=== PATIENT | female | born 1995 | race Caucasian/White ===

== ENCOUNTER 2021-06-16 14:26 | Outpatient (CLI) ==
[~2021-06-16] VITALS: Ht 162.6 cm; Wt 90.5 kg
== END 2021-06-16 16:30 | disposition home or self-care (01) ==
LOC: M LDO 14:26
PROVIDERS: ATTEND Registered Nurse
DX: O9A.213 Injury, poisoning and certain other consequences of external causes complicating pregnancy, third trimester (principal); Z3A.36 36 weeks gestation of pregnancy; S20.20XA Contusion of thorax, unspecified, initial encounter; W00.0XXA Fall on same level due to ice and snow, initial encounter; Y92.9 Unspecified place or not applicable
CPT/HCPCS: 59025; 76815; G0378; G0463

== ENCOUNTER 2021-07-17 21:38 | Inpatient (IN) ==
[~2021-07-17] VITALS: Ht 162.6 cm; Wt 91.6 kg
[2021-07-17] MEDS ORDERED: OXYTOCIN DRIP 30 UNITS in IV 1 EA IV PRN ×4 (21:50)
[2021-07-17] MEDS ORDERED: CARBOPROST TROMETHAMINE 250 MCG/ML AMP IM PRN (21:50)
[2021-07-17] MEDS ORDERED: LIDOCAINE 1% MDV 20ML VIAL INFIL PRN (21:50)
[2021-07-17] MEDS ORDERED: TRANEXAMIC ACID INJection 1,000 MG in NS 100 ML IV PRN (21:50)
[2021-07-17] MEDS ORDERED: METHYLERGONOVINE MALEATE 0.2 MG/ML VIAL (J2210) IM PRN (21:50)
[2021-07-17] MEDS ORDERED: PRENTAB9 PO (21:54)
[2021-07-17] MEDS ORDERED: HOME MED LIST COMPLETE! XX SCH (21:55)
[2021-07-17 21:59] VITALS: BP 147/92
[2021-07-17] MEDS ORDERED: diphenhydrAMINE 25MG CAP PO ONE (22:45)
[2021-07-17 22:59] VITALS: BP 141/91
[2021-07-17 23:05] LABS: HEMATOCRIT 36.5 % (36.0-47.0); HEMOGLOBIN 11.2 g/dl (12.0-15.5); MEAN CORPUSCULAR HGB CONC 30.7 g/dl (32.0-36.5); MEAN CORPUSCULAR VOLUME 78.3 fl (80.0-96.0); PLATELET COUNT, AUTOMATED 289 10^3/uL (150-450); RED BLOOD COUNT 4.66 10^6/uL (4.00-5.40); WHITE BLOOD COUNT 8.5 10^3/uL (4.0-10.0)
[2021-07-18] VITALS (40 sets, daily range): BP systolic 105–214; BP diastolic 57–103
[2021-07-18] MEDS: LR 1,000 ML IV SCH ×3 (00:24→19:38)
[2021-07-18] MEDS ORDERED: PROMETHAZINE INJ 25 MG/ML VIAL (J2550) IV ONE ×2 (00:30→19:10)
[2021-07-18] MEDS ORDERED: BUTORPHANOL 2 MG/ML INJ (J0595) IV ONE ×2 (00:30→19:10)
[2021-07-18 01:24] LABS: ALT/SGPT 15 U/L (12-78); BILIRUBIN,TOTAL 0.2 MG/DL (0.2-1.0); CREATININE FOR GFR 0.69 MG/DL (0.55-1.30); GLOMERULAR FILTRATION RATE > 60.0 (>60); LDH LACTATE DEHYDROGENASE 208 U/L (84-246); URIC ACID 5.9 MG/DL (2.6-6.0)
[2021-07-18 03:53] LABS: CREATININE,RANDOM URINE 45.6 MG/DL; TOTAL PROTEIN,RANDOM URINE 20.7 MG/DL (0.0-12.0)
[2021-07-18] MEDS ORDERED: OXYTOCIN DRIP 30 UNITS in IV 1 EA IV SCH (11:10)
[2021-07-18] MEDS ORDERED: FENTANYL 2MCG/ML ROPIVACAINE 0.2% IN 0.9% NACL 100ML IVBAG As Ordered ONE (20:16)
[2021-07-18] MEDS ORDERED: EPIDURAL/PCA KEYS XX PRN (20:55)
[2021-07-18] MEDS ORDERED: LACTATED RINGER'S 1000 ML IV PRN (20:55)
[2021-07-18] MEDS ORDERED: diphenhydrAMINE 50MG/ML VIAL (J1200) IV PRN (20:55)
[2021-07-18] MEDS ORDERED: ONDANSETRON 4MG/2ML VIAL IV PRN (20:55)
[2021-07-18] MEDS ORDERED: NALOXONE INJ 0.4MG/1ML VIAL (J2310 PER 1MG) IV PRN (20:55)
[2021-07-18] MEDS ORDERED: ePHEDrine SULFATE 25 MG/5 ML(5MG/ML) SYRINGE IV PRN (20:55)
[2021-07-18] MEDS ORDERED: EPIDURAL COMMENT XX SCH (20:55)
[2021-07-18] MEDS ORDERED: FENTANYL/ROPIVACAINE/NACL BAG 100 ML EPIDURAL SCH (20:55)
[2021-07-18] MEDS ORDERED: REFRIGERATOR IV KEYS XX PRN (20:55)
[2021-07-18 23:55] LABS: CORD GAS ABE V -5.6; CORD GAS HCO3 V 21.3 MEQ/L; CORD GAS O2 SAT V 56.3 %; CORD GAS PH V 7.274 UNITS; CORD GAS PO2 V 27.3 mmHg; CORD GAS TCO2 V 22.7 MEQ/L
[2021-07-18 23:56] LABS: CORD GAS ABE A -8.6; CORD GAS HCO3 A 18.9 MEQ/L; CORD GAS O2 SAT A 83.3 %; CORD GAS PCO2 A 46.8 mmHg; CORD GAS PH A 7.225 UNITS; CORD GAS PO2 A 46.9 mmHg; CORD GAS SBC A 17.3 MEQ/L; CORD GAS TCO2 A 20.4 MEQ/L
[2021-07-19] VITALS (10 sets, daily range): BP systolic 124–148; BP diastolic 78–91
[2021-07-19] MEDS: LR 1,000 ML IV SCH ×4 (00:39→17:25)
[2021-07-19] MEDS ORDERED: OXYTOCIN DRIP 30 UNITS in IV 1 EA IV SCH (01:25)
[2021-07-19] MEDS ORDERED: DOCUSATE SODIUM 100MG CAPSULE PO PRN (01:25)
[2021-07-19] MEDS ORDERED: RHOGAM 300 MCG (1500 IU) INJ (J2790) IM SCH (01:25)
[2021-07-19] MEDS ORDERED: PROMETHAZINE 25 MG TAB PO PRN (01:25)
[2021-07-19] MEDS ORDERED: MEASLES,MUMPS,RUBELLA VACCINE INJ (MMR-II) (90707) SC SCH (01:25)
[2021-07-19] MEDS ORDERED: ONDANSETRON 4MG/2ML VIAL IV PRN (01:25)
[2021-07-19] MEDS ORDERED: cefoTEtan DISODIUM 2 GM in D5W MINI-BAG PLUS 50 ML IV ONE (01:30)
[2021-07-19] MEDS: ACETAMINOPHEN 500 MG TAB PO SCH ×4 (02:00→20:16)
[2021-07-19] MEDS: DOCUSATE SODIUM 100MG CAPSULE PO SCH ×3 (02:10→20:16)
[2021-07-19 06:55] LABS: HEMATOCRIT 31.2 % (36.0-47.0); HEMOGLOBIN 9.7 g/dl (12.0-15.5); MEAN CORPUSCULAR HEMOGLOBIN 24.7 pg (27.0-33.0); MEAN CORPUSCULAR HGB CONC 31.1 g/dl (32.0-36.5); MEAN CORPUSCULAR VOLUME 79.4 fl (80.0-96.0); PLATELET COUNT, AUTOMATED 219 10^3/uL (150-450); RED BLOOD COUNT 3.93 10^6/uL (4.00-5.40); WHITE BLOOD COUNT 18.3 10^3/uL (4.0-10.0)
[2021-07-19] MEDS: MIRALAX *UNIT DOSE* 17GM PACKET PO SCH (08:01)
[2021-07-19] MEDS: PRENATAL VITAMINS CHEWABLE TABLET PO SCH (08:02)
[2021-07-19] MEDS: DIBUCAINE 1% OINTMENT 30GM TOP PRN (08:20)
[2021-07-19] MEDS ORDERED: PRENATAL VITAMINS CHEWABLE TABLET PO SCH (09:00)
[2021-07-19] MEDS ORDERED: diphenhydrAMINE 25MG CAP PO PRN (10:15)
[2021-07-19] MEDS: IBUPROFEN 800 MG TAB PO PRN (11:45)
[2021-07-20] MEDS: LR 1,000 ML IV SCH (01:25)
[2021-07-20] MEDS: ACETAMINOPHEN 500 MG TAB PO SCH ×3 (01:25→13:23)
[2021-07-20] MEDS: IBUPROFEN 800 MG TAB PO PRN (04:21)
[2021-07-20 06:00] VITALS: BP 138/88
[2021-07-20] MEDS: MIRALAX *UNIT DOSE* 17GM PACKET PO SCH (09:12)
[2021-07-20] MEDS: DOCUSATE SODIUM 100MG CAPSULE PO SCH (09:12)
[2021-07-20] MEDS: PRENATAL VITAMINS CHEWABLE TABLET PO SCH (09:12)
[2021-07-20] MEDS: DIBUCAINE 1% OINTMENT 30GM TOP PRN (13:23)
== END 2021-07-20 18:30 | disposition home or self-care (01) | DRG 768 ==
LOC: M LDI 21:38 → M OBS 07-19 02:30
PROVIDERS: ADMIT Advanced Practice Midwife; ATTEND Obstetrics & Gynecology
PROC: 0DQR0ZZ Repair Anal Sphincter, Open Approach (ICD-10-PCS; principal; 2021-07-18)
PROC: 10E0XZZ Delivery of Products of Conception, External Approach (ICD-10-PCS; 2021-07-18)
DX: O48.0 Post-term pregnancy (principal); Z37.0 Single live birth; O70.23 Third degree perineal laceration during delivery, IIIc; Z3A.41 41 weeks gestation of pregnancy